=== PATIENT | female | born 1975 | race Caucasian/White ===

== ENCOUNTER → 2020-07-10 | Outpatient (CLI) | payer OTHER | LOC: M.RAD 08:53 | PROVIDERS: ATTEND Registered Nurse Diabetes Educator | DX: Z12.31 Encounter for screening mammogram for malignant neoplasm of breast (principal) ==

== ENCOUNTER → 2020-09-19 | Outpatient (CLI) | payer OTHER | LOC: M.RAD 15:42 | PROVIDERS: ATTEND Registered Nurse Diabetes Educator | DX: M25.521 Pain in right elbow (principal) ==

== ENCOUNTER → 2020-10-08 | Outpatient (CLI) | payer OTHER | LOC: M.MRI 14:20 | PROVIDERS: ATTEND Registered Nurse Diabetes Educator | DX: S56.511A Strain of other extensor muscle, fascia and tendon at forearm level, right arm, initial encounter (principal); X58.XXXA Exposure to other specified factors, initial encounter; Y93.89 Activity, other specified; Y92.89 Other specified places as the place of occurrence of the external cause; Y99.8 Other external cause status ==

== ENCOUNTER → 2020-11-01 | Outpatient (CLI) | payer OTHER ==
[2020-11-01 16:10] LABS: CREATININE 0.8 mg/dL (0.6-1.3)
== END ==
LOC: M.CT 15:41
PROVIDERS: ATTEND Registered Nurse Diabetes Educator
DX: S06.0X0S Concussion without loss of consciousness, sequela (principal); R68.89 Other general symptoms and signs; R51.9 Headache, unspecified; R42 Dizziness and giddiness; X58.XXXS Exposure to other specified factors, sequela

== ENCOUNTER 2021-02-11 13:23 | Emergency (ER) | payer OTHER ==
[~2021-02-11] VITALS: Ht 152.4 cm; Wt 49.4 kg
[2021-02-11 13:32] VITALS: BP 121/88
[2021-02-11] MEDS ORDERED: PAXIL20 MG PO (13:34)
[2021-02-11] MEDS ORDERED: ACUTANE (13:34)
== END 2021-02-11 15:24 | disposition home or self-care (01) ==
LOC: M.ERS 13:23
DX: S61.214A Laceration without foreign body of right ring finger without damage to nail, initial encounter (principal); W23.0XXA Caught, crushed, jammed, or pinched between moving objects, initial encounter; Y93.89 Activity, other specified; Y92.89 Other specified places as the place of occurrence of the external cause; Y99.0 Civilian activity done for income or pay

== ENCOUNTER → 2021-07-14 | Outpatient (CLI) | payer OTHER ==
[~2021-07-14] MED LIST: ACUTANE; PAXIL20 MG PO
== END ==
LOC: M.RAD 08:56
PROVIDERS: ATTEND Registered Nurse Diabetes Educator
DX: Z12.31 Encounter for screening mammogram for malignant neoplasm of breast (principal)